=== PATIENT | male | born 1995 | race Caucasian/White ===

== ENCOUNTER 2019-02-27 02:09 | Outpatient (CLI) | payer OTHER, SELFPAY ==
[2019-02-27 09:04] LABS: Anion Gap 9.4 mmol/L (3-11); BUN 16 mg/dL (7-18); CO2 26.6 mmol/L (21.0-32.0); CREATININE 0.97 mg/dL (0.70-1.30); Calcium 9.3 mg/dL (8.5-10.1); Calculated LDL 106 mg/dL; Chloride 104 mmol/L (98-107); Cholesterol 179 mg/dL (50-200); Glucose 98 mg/dL (70-100); HDL Cholesterol 35 mg/dL (40-60); Potassium 4.5 mmol/L (3.5-5.1); Sodium 140 mmol/L (136-145); Triglyceride 193 mg/dL (30-150)
== END 2019-02-27 02:29 ==
PROVIDERS: PCP Psychiatry & Neurology Psychiatry; Visit Provider Psychiatry & Neurology Psychiatry
DX: F29 Unspecified psychosis not due to a substance or known physiological condition (principal); Z79.899 Other long term (current) drug therapy
CPT/HCPCS: 36415; 80048; 80061

== ENCOUNTER 2020-02-28 01:50 | Outpatient (CLI) | payer OTHER, SELFPAY ==
[2020-02-28 08:57] LABS: Anion Gap 8.8 mmol/L (3-11); BUN 14 mg/dL (7-18); CO2 28.2 mmol/L (21.0-32.0); CREATININE 0.99 mg/dL (0.70-1.30); Calculated LDL 137 mg/dL (<100); Chloride 103 mmol/L (98-107); Cholesterol 222 mg/dL (<200); Glucose 96 mg/dL (74-106); HDL Cholesterol 36 mg/dL (40-60); Potassium 4.4 mmol/L (3.5-5.1); Sodium 140 mmol/L (136-145); Triglyceride 249 mg/dL (<150)
== END 2020-02-28 02:10 ==
PROVIDERS: PCP Psychiatry & Neurology Psychiatry; Visit Provider Psychiatry & Neurology Psychiatry
DX: F29 Unspecified psychosis not due to a substance or known physiological condition (principal)
CPT/HCPCS: 36415; 80048; 80061

== ENCOUNTER 2020-03-25 18:57 | Outpatient (REF) | payer OTHER, SELFPAY ==
[2020-03-28 01:49] LABS: Chlamydia amplified RNA Negative (Negative); N gonorrhoeae amplified RNA Negative (Negative); Source URETHRA
== END 2020-03-25 19:17 ==
LOC: NCHCN 18:57
PROVIDERS: PCP Psychiatry & Neurology Psychiatry; Visit Provider Internal Medicine
DX: Z00.00 Encounter for general adult medical examination without abnormal findings (principal)
CPT/HCPCS: 87491; 87591

== ENCOUNTER 2021-04-01 09:14 | Outpatient (REF) | payer OTHER, SELFPAY ==
[2021-04-01 19:52] LABS: Anion Gap 12.2 mmol/L (3-11); BUN 18 mg/dL (7-18); CO2 24.8 mmol/L (21.0-32.0); Calcium 9.1 mg/dL (8.5-10.1); Calculated LDL 113 mg/dL (<100); Chloride 104 mmol/L (98-107); Cholesterol 181 mg/dL (<200); Glucose 106 mg/dL (74-106); HDL Cholesterol 36 mg/dL (40-60); Potassium 4.3 mmol/L (3.5-5.1); Sodium 141 mmol/L (136-145); TSH 1.89 uIU/mL (0.36-3.74); Triglyceride 163 mg/dL (<150)
== END 2021-04-01 09:15 | disposition home or self-care (01) ==
LOC: NCHCN 09:14
PROVIDERS: PCP Psychiatry & Neurology Psychiatry; Visit Provider Internal Medicine
DX: Z00.00 Encounter for general adult medical examination without abnormal findings (principal); E66.9 Obesity, unspecified; Z13.29 Encounter for screening for other suspected endocrine disorder; Z13.220 Encounter for screening for lipoid disorders
CPT/HCPCS: 80048; 80061; 84443

== ENCOUNTER 2022-04-14 17:21 | Outpatient (REF) | payer OTHER, SELFPAY ==
[2022-04-14 19:37] LABS: Anion Gap 11.3 mmol/L (3-11); BUN 20 mg/dL (7-18); CO2 25.7 mmol/L (21.0-32.0); Calcium 9.5 mg/dL (8.5-10.1); Chloride 99 mmol/L (98-107); Estimated GFR 105.14 (mL/min/1.73m2); Glucose 100 mg/dL (74-106); Potassium 3.9 mmol/L (3.5-5.1); Sodium 136 mmol/L (136-145); TSH 3.29 uIU/mL (0.36-3.74)
[2022-04-14 19:48] LABS: Calculated LDL 111 mg/dL (<100); Cholesterol 222 mg/dL (<200); HDL Cholesterol 40 mg/dL (40-60); Triglyceride 357 mg/dL (<150)
== END 2022-04-14 17:22 | disposition home or self-care (01) ==
LOC: NCHCN 17:21
PROVIDERS: PCP Psychiatry & Neurology Psychiatry; Visit Provider Internal Medicine
DX: E66.9 Obesity, unspecified (principal); M76.9 Unspecified enthesopathy, lower limb, excluding foot
CPT/HCPCS: 80048; 80061; 84443